=== PATIENT | female | born 1960 ===

== ENCOUNTER 2018-07-14 23:22 | Emergency (ER) | payer MEDICAID, OTHER ==
[~2018-07-14] VITALS: Ht 154.9 cm; Wt 54.5 kg
[2018-07-14 23:25] VITALS: BP 165/95
--- NOTE | 2018-07-14 23:45 | NUR ---
PT REQUESTING A RX FOR EFFEXOR. NO DISTRESS NOTED, AA&O, CALL LIGHT IN REACH
== END 2018-07-15 00:10 | disposition home or self-care (01) ==
LOC: ED 07-15
DX: F32.9 Major depressive disorder, single episode, unspecified (principal); Z76.0 Encounter for issue of repeat prescription; J45.909 Unspecified asthma, uncomplicated; F41.1 Generalized anxiety disorder
CPT/HCPCS: 99283